=== PATIENT | male | born 2005 | race Asian ===

== ENCOUNTER 2024-06-18 14:48 | Outpatient (AMB) | payer OTHER, SELFPAY ==
[2024-06-18 14:50] VITALS: BP 110/70; PULSE 86; O2SAT 95; BMI 17.7
--- NOTE | 2024-06-18 14:50 | MHC.OFFVIS ---
Vital Signs 06/18/24 14:50 Height 5 ft 10 in Weight 123 lb 7.342 oz BMI 17.7 BP 110/70 Blood Pressure Location Lt brachial Position Sitting Pulse 86 Pulse Source Pulse Oximeter Pulse Oximetry (%) 95 Oxygen Delivery Method Room Air Intake Visit Reasons: Type 1 DM Intake Note: New patient present today for Type 1 Diabetes Mellitus. Last Diabetic eye exam: 2023 Last Podiatry Visit: Doesn't have one. Random Glucose: 133 mg/dl HgA1C: 7.9% Final Canoe Inspector Required: No Information Interpreted: non-clinical & clinical Accompanied by: Aunt Allergies No Known Allergies Allergy (Verified 06/18/24 14:54) Medication List - Last Reconciled 06/18/24 by Alpa Hernandez MD insulin glargine (Lantus U-100 Insulin) 15 units subcut QAM insulin lispro (Humalog U-100 Insulin) 10 units subcut TID HPI Comments Details: 18-year-old male here today for initial evaluation of type 1 diabetes mellitus. Accompanied by his aunt who was present during the visit. Moved to [facility] 3 months ago from [facility]. Last mill roll rewinder visit was in [place] Mar 21 History of diabetes Diagnosed at age 6 Prior therapy: He has been on insulin Omnipod pump in the past in 2014 when he used [place]. However pump is not feasible for him as he goes to [place] for summer vacations for 2-3 months. Currently on On insulin basal bolus regimen with the MDI injections Current regimen: Lantus 15 HS Humalog BF 1:6, lunch and dinner 1 :8 requiring 10 to 15 units with meals SMBGs Didnt bring meter Checks 3 to 4 times Fasting : 90 to 120, Had hypoglycemia last week blood sugar less than 70 , Has hypoglycemic awareness at 50s , feels hunger only when in 60s No serious hypoglycemic event a1c POC 06/18/24 7.9 % Denies any symptoms of hyperglycemia including polyphagia, polyuria, polydipsia. Denies any hypoglycemic symptoms. Complications Eye exam: Last eye exam was Mar 2023 , in [place], doesnt think they checked retina Neuropathy: no history , no paresthesias Kidney disease: no history of kidney disease Macrovascular complications: No history of macrovascular complications. Statin: None APRIL/ARB: None Exercise: Not much Diet control: Carb counts He has never had any hospitalizations for hyperglycemia/hypoglycemia. Social history Works online , mostly a desk job Physical exam General: sitting comfortably in no acute distress HEENT: normocephalic/atraumatic Neck: supple, symmetrical Cardiac: normal heart sounds Pulm: normal breath sounds B/L, no added breath sounds Abd: not distended, no tenderness Extremities: no edema, no signs of myxedema Neuro: AAO x3, Speech: normal, no facial droop, moving all 4 extremities Skin: no rash Foot exam: Deferred today due to time limitation Laboratory Tests 06/18/24 06/18/24 14:57 15:38 Glucose (Clinic) 133 H Hgb A1c (Clinic) 7.9 H [facility] Medical History (Updated 06/18/24 @ 15:51 by Alpa Hernandez MD) Type 1 diabetes mellitus Family History Mother No problems noted. Father No problems noted. Social History Alcohol intake: never Patient Tobacco Use Status: Never used Tobacco Physical Exam Vital Signs: Last Vital Signs Pulse 86 06/18/24 14:50 BP 110/70 06/18/24 14:50 Pulse Ox 95 06/18/24 14:50 Oxygen Delivery Method Room Air 06/18/24 14:50 BMI result Body Mass Index 17.7 Results AMB Hemoglobin A1c AMB Hemoglobin A1c 7.9 % Last Edit by JACE Russell on 06/18/24 15:39 Results Reviewed Results Reviewed: Laboratory Last Values Glucose (Clinic) 133 mg/dL (60-115) H 06/18/24 14:57 Assessment & Plan Assessment & Plan (1) Type 1 diabetes mellitus: Code(s): E10.9 - Type 1 diabetes mellitus without complications Category: Medical Qualifiers: Diabetes mellitus complication status: with hypoglycemia Diabetes mellitus complication detail: without coma Qualified Code(s): E10.649 - Type 1 diabetes mellitus with hypoglycemia without coma Plan: 18-year-old male coming in today for initial evaluation of type 1 diabetes mellitus. Diagnosed at age 6. He moved [place] ago from [place]. That is where he was getting his previous care. Currently on basal bolus regimen with the MDI. He did not bring his glucometer today, however blood sugars per patient has been mostly around 90-120 fasting, with some hypoglycemic episodes less than 70. Currently I would not have much data for him so I will continue him on his current regimen. We applied the freestyle Agustin 3 sent +sensor today. Sensory education done briefly. I will also have him see our educator. Hypoglycemia education done. Plan: -continue Lantus 15 units daily at bedtime -continue Humalog with current carb ratios -podiatry referral placed -ophthalmology referral placed -hypoglycemia education done -educator referral placed -cotton picking machine operator sensor from pharmacy -discussed importance of verifying blood sugars with fingerstick when blood sugars are very low or high -also provided education on hyperglycemia and risks of hyperglycemia. -lab orders placed to be done prior to next visit Plan I spent 60 minutes in reviewing the record, seeing the patient and documenting in the medical record. Orders: Orders AMB Hemoglobin A1c Today E10.9 - Type 1 diabetes mellitus without complications, Z13.9 - Encounter for screening, unspecified Lipid Panel Today E10.9 - Type 1 diabetes mellitus without complications Comprehensive Met. Panel Today E10.9 - Type 1 diabetes mellitus without complications Microalbumin, Random (w Creat) Today E10.9 - Type 1 diabetes mellitus without complications TSH reflex Free T4 Today E10.9 - Type 1 diabetes mellitus without complications Referrals Diabetes Education Referral E10.9 - Type 1 diabetes mellitus without complications Podiatry Referral E10.9 - Type 1 diabetes mellitus without complications Ophthalmology Referral E10.9 - Type 1 diabetes mellitus without complications Medications: New insulin glargine (Lantus Solostar U-100 Insulin) 15 units (0.15 mL) subcut QPM 15 mL 3RF insulin lispro (Humalog KwikPen (U-100) Insulin) subcutaneously 3 times a day; up to 50 units a day 15 mL 3RF blood-glucose meter (FreeStyle Lite Meter kit) As directed to check blood sugars 4 times a day 1 ea 1RF E10.9 - Type 1 diabetes mellitus without complications blood sugar diagnostic (FreeStyle Test strips) As directed to check blood sugars 4 times a day 100 ea 2RF E10.9 - Type 1 diabetes mellitus without complications blood-glucose sensor (FreeStyle Agustin 3 Plus Sensor device) As directed every 14 days 6 ea 3RF E10.9 - Type 1 diabetes mellitus without complications lancets (FreeStyle Lancets) As directed to check blood sugars 4 times a day 100 ea 3RF E10.9 - Type 1 diabetes mellitus without complications pen needle, diabetic (Comfort EZ Pen [place]) As directed to inject insulin 4 times a day, 100 ea 4RF Patient Instructions: See eye doctor See senior financial consultant See educator Continue insulin as it is paralegal supervisor sensor Rule of 15 Treatment for Hypoglycemia (Low blood sugar) If your blood glucose is low (70 and below)*, follow the steps below to treat: Eat or drink something from the list below equal to 15 grams of carbohydrate (carb). Rest for 15 minutes Re-check your blood glucose. If it is still low, (below 70), repeat step 1 above. ? If your next meal is more than an hour away, you will need to eat one carbohydrate choice as a snack to keep your blood glucose from going low again. ?If you can't figure out why you have low blood glucose, call your healthcare provider, as your medicine may need to be adjusted. ?Always carry something with you to treat an insulin reaction. Use food from the list below. ? Foods equal to One Carbohydrate Choice (15 grams of carbohydrate): 3 Glucose ?tablets or 4 Dextrose tablets 4 ounces of fruit juice 5-6 ounces (about 1/2 can) of regular soda such as Coke or Pepsi ? 7-8 gummy or regular Life Savers ? 1 Tbsp. of sugar or jelly NOTE: If your blood sugar is less than 50, double the portion above for a total of 30 gm. ?Carbohydrate. ? Follow meal plan of 45-60 g of consistent carbohydrates at 3 meals each day and 15 g of carbohydrate at 1-2 snacks each day. Coding Level of Care Code New Pt Level 5 (21976) Diagnoses Type 1 diabetes mellitus with hypoglycemia and without coma E10.649 Diabetes mellitus complication status: with hypoglycemia Diabetes mellitus complication detail: without coma Time Spent (min) 60
[2024-06-18 15:02] LABS: Glucose, Whole Blood 133 mg/dL (60-115)
--- OUTSIDE RECORDS SUMMARY | 2024-06-18 17:39 | XMS_ITS | Clinical Summary ---
Author Organization [address] Building Address [address] [place] [address] Phone Care Team Providers Care Pond Tender Name Role Phone Lexi Chiu MD Primary Care Provider [phone] Social History Tobacco Use Types Packs/Day Years Used Date Smoking Tobacco: Never Assessed Sex and Gender Information Value Date Recorded Sex Assigned at Not on file Legal Sex Male 2:46 PM EDT Gender Identity Not on file Sexual Orientation Not on file Plan of Treatment Upcoming Encounters Date Type Department Care Team (Late st Contact Info) Description 09/22/2024 3:30 PM EDT Office Visit Internal Medicine - [address] [phone] Lexi Chiu MD [address] [place] [address] Health Maintenance Due Date Last Done Comments Varicella Vaccines (1 of 2 - 13+ 2-dose series) 11/17/2016 HPV Vaccines (1 - Male 3-dos e series) 11/17/2018 Meningococcal B Vaccine (1 o f 2 - Standard) 2019 DTaP,Tdap,and Td Vaccines (1 - Tdap) 11/17/2022 Hepatitis B Vaccines (1 of 3 - 19+ 3-dose series) 11/17/2022 COVID-19 Vaccine (1 - 2023-2 5 season) 2023 Annual Well Child Visit (3-2 1 years old) 05/05/2024 Depression Screening 05/05/2024 HIV Screening 05/05/2024 Hepatitis C Screening 05/05/2024 Social Influencers of Health Screening 05/05/2024 Influenza Vaccine (Season Ended) 2024 HIB Vaccines Aged Out No longer eligi ble based on patient's age to complete this topic Hepatitis A Vaccines Aged Out No long er eligible based on patient's age to complete this topic IPV Vaccines Aged Out No longer eligi ble based on patient's age to complete this topic MMR Vaccines Aged Out No longer eligi ble based on patient's age to complete this topic Meningococcal ACWY Vaccine Aged Out N o longer eligible based on patient's age to complete this topic Pneumococcal Vaccine: Pediat rics (0 to 5 Years) and At-Risk Patients (6 to 64 Years) Aged Out No longer eligible b ased on patient's age to complete this topic RSV Immunization Patients Un aubrey 20 months Aged Out No longer eligible b ased on patient's age to complete this topic Insurance [facility] [employer] PLAN MEDICAID - [place] Care Teams Pond Tender Relationship Specialty Start Date End Date Lexi Chiu MD [address] [place] [address] PCP - General Internal Medicine 05/05/24
== END 2024-06-18 15:47 | disposition home or self-care (01) ==
LOC: HO.ENCR 14:49
PROVIDERS: Visit Provider Student in an Organized Health Care Education/Training Program
DX: E10.649 Type 1 diabetes mellitus with hypoglycemia without coma (principal); Z13.9 Encounter for screening, unspecified; E10.9 Type 1 diabetes mellitus without complications
CPT/HCPCS: 99205

== ENCOUNTER → 2024-06-18 14:48 | Outpatient (BNVA) | payer OTHER, SELFPAY | PROVIDERS: Visit Provider Student in an Organized Health Care Education/Training Program | DX: E10.649 Type 1 diabetes mellitus with hypoglycemia without coma (principal); Z79.4 Long term (current) use of insulin | CPT/HCPCS: 82947; 83036; 99202 ==

== ENCOUNTER 2024-07-02 09:02 | Outpatient (AMB) | payer OTHER, SELFPAY ==
--- OUTSIDE RECORDS SUMMARY | 2024-07-02 09:32 | XMS_ITS | Clinical Summary ---
Author Organization [address] Building Address [address] [place] [address] Phone Care Team Providers Care Medical Esthetician Name Role Phone Lexi Chiu MD Primary Care Provider [phone] Social History Tobacco Use Types Packs/Day Years [...] PM EDT Office Visit Internal Medicine - [address] [phone] Lexi Chiu MD [address] [place] [address] Health Maintenance Due Date Last Done Comments [...] patient's age to complete this topic Insurance [facility] [employer] PLAN MEDICAID - [place] Care Teams Medical Esthetician Relationship Specialty Start Date End Date Lexi Chiu MD [address] [facility] [place] [address] PCP - General Internal Medicine 05/05/24
--- OUTSIDE RECORDS SUMMARY | 2024-07-02 09:33 | XMS_ITS | Continuity of Care Document ---
Author Organization [facility] Address [address] [facility] [address] [place] [address] Phone Care Team Providers Care Byproducts Operator Name Role Phone David Leung MD Unavailable [...] Encounter [facility] , [address], [place], [place], [id number], tel:[phone] [place] blurry vision (chief complaint) Type 1 diabetes mellitus on insulin therapyAllergic conjunctivitis, bilateralMyopia of both eyes 7 Xochitl Hernandez. [address] [facility], [address], [place], [id number] , [place]. tel:[phone] Referring Provider: David Saenz, [address] [facility] [address], [place], [address] . tel:[phone] [facility] [address], [id number], [place] tel:[phone] [place] blurry vision (chief complaint) Acute Atopic ConjunctivitisRegu lar Astigmatism 5 Xochitl Hernandez. [address] [facility], [address] [place] [address], [id number] , [place]. tel:[phone] Referring Provider: David Saenz, [address] [facility] [address] [place] [address], [address] . tel:[phone] Est. Patient Detailed [facility] [address], [id number], [place] tel:[phone] [place] Acute Atopic Conjunctivitis 4 Xochitl Hernandez. [address] [facility], [address], [id number] , [place]. tel:[phone] Referring Provider: David Saenz, [address] [facility] [address], [place], [address] . tel:[phone] [facility] [address], [id number], [place] tel:[phone] [place] ChalazionDiabetes Mellitus Type 2, UncomplicatedRegul ar AstigmatismAcute Atopic Conjunctivitis 4 Xochitl Hernandez. [address] [facility], [address], [place], [id number] , [place]. tel:[phone] Est. Patient Detailed [facility] [place], [address], [id number], tel:[phone] [place] Diabetes Mellitus Type 2, UncomplicatedRegul ar Astigmatism Apr-0 4 Xochitl Hernandez. [address] [facility], [address], [place], [place], [id number] , [place]. tel:[phone] [facility] , [address], [id number], tel:[phone] [place] Diabetes Mellitus Type 2, UncomplicatedRegul ar Astigmatism Oct-3 0-201 3 Xochitl Hernandez. [address] [facility], [address], [place], [place], [id number] , [place]. 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 Related to Regular Astigmatism - Return in 1 year w tiffani Leung MD for Complete Exam. Related to Diabetes Mellitus Type 2, Uncomplicated Diabetes Mellitus-No diabetic Retinopathy OU - Keep good control of Blood Sugar levels. Start Zaditor BID or PRN OU for itch. Report Dr. Austin Related to Diabetes Mellitus Type 2, Uncomplicated Assessments Type Assessment Date assessment Type 1 diabetes mellitus on insu lucian therapy assessment Allergic conjunctivitisjefe assessment Myopia of both eyes Patient Care Teams Name Effective Dates (start - stop) Status Members No Information
--- NOTE | 2024-07-02 10:05 | A.OFFVIS_ITS ---
Intake Intake Visit Reasons: T2DM Clinical Data Assistant Required: No Accompanied by: Self / Same As Patient Allergies No Known Allergies Allergy (Verified 06/18/24 14:54) HPI Comprehensive Diabetes Asmnt General Diabetes type type 1 Age of onset 6y/o Medications Details MDI Rapid acting insulin treatment details Humalog - Counts carbs Long acting insulin treatment details Basaglar 15 units Uses insulin pump No Lifestyle Physical activity functional status independent ambulation Self Mgmt What meter brand do you use? Reports [employer] Education How do you learn best? One-on-One Instruction Patient comprehension yes States what type of Diabetes they have Most Recent Diabetes Results: No Data to Display [facility] Medical History (Updated 06/18/24 @ 15:51 by Alpa Hernandez MD) Type 1 diabetes mellitus Family History (Updated 06/18/24 @ 14:56 by JACE Russell) Mother No problems noted. Father No problems noted. 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 Treats low blood sugar with fruit juice, reports he over treats frequently. Suggested to patient he obtain small juice boxes, glucose tabs or glucose gel which is already portioned to 15 gms Was on Omnipod insulin pump in the past which was not integrated with CGM. Recently started Agustin 3+ sensor Average glucose for the past 14 days 165 mg/dL Above target 37% At target 61% Below target 2% Patient's last A1c 7.9% on 06/18/2024 Patient uses insulin to carb ratio at breakfast of 1-6, lunch and dinner 1-8 Correction factor: 1:80 Corrects to 140 mg/dL In the past he has used Humalog igll pen with cartridge, he frequently uses 0.5 units of insulin. Discussed with patient new prescription for Humalog pens will be dosed in 1 unit increments. If he finds that he is having more difficulty controlling glucose levels he should discuss with Dr. Hernandez a prescription for Humalog cartridges At this time patient is not interested in pursuing insulin pump therapy. we did review insulin pump basics. Explained pros and cons of insulin pumps. Showed pt various pumps, infusion sets, and cgms currently available. Reviewed need to wear pump 24/7 and need to change infusion set every 3 days. Also stressed importance of frequent BG checks, 4x daily minimum or use pump that is integrated with CGM.? Patient given comparison sheet of all insulin pump available on the market. Learning objectives: The patient was provided with verbal and written education on the following topics as outlined below. The patient met all learning objectives and was able to verbalize understanding and provide teach back of education topics discussed . The patient was provided with the opportunity to ask questions and all questions were answered. Hypo instructions ? When first signs of insulin reaction occur, immediately drink orange juice or cola, or suck on a sugar cube, but only if the person is conscious. ? Person with diabetes should continue taking insulin when ill, unless he/she is not able to eat.? Regularly check blood sugar or urine for sugar and acetone during illness. ? Exercise regularly. ? Pay special attention to the feet.? Avoid cuts, sores, blisters, ill- fitting shoes, or going barefoot.? Promptly treat injuries to the feet. ? Take medications as directed by physician. ? Drink extra water or noncaffeinated, nonsugared drinks to prevented hydration. Signs and symptoms of low blood sugar (happen quickly) Each person's reaction to low blood sugar is different. Learn your own signs and symptoms of when your blood sugar is low. Taking time to write these symptoms down may help you learn your own symptoms of when your blood sugar is low. From milder, more common indicators to most severe, signs and symptoms of low blood sugar include: Feeling shaky Being nervous or anxious Sweating, chills and clamminess Irritability or impatience Confusion Fast heartbeat Feeling lightheaded or dizzy Hunger Nausea Color draining from the skin (pallor) Feeling Sleepy Feeling weak or having no energy Blurred/impaired vision Tingling or numbness in the lips, tongue, or cheeks Headaches Coordination problems, clumsiness Hypoglycemia or blood glucose under 70 mg/dL use the rule of 15's: If you have your blood glucose meter test your blood glucose, if you do not have your meter still follow below instruction: Keep quick-sugar foods with you at all times.? Take 15 grams of fast acting carbohydrates. Examples are 4 ounces of fruit juice or regular soda pop, 8 ounces fat-free milk, 1 tablespoon of table sugar, honey or corn syrup, jam, one miniature box of raisins, 7-8 gumdrops or Life Savers candy, 4 glucose tablets, and glucose gel.? Retest blood glucose in 15 minutes, if blood glucose is still under 80 mg/dL repeat rule of 15's. If blood glucose is under 50, take 30 grams of fast acting carbohydrates If you are having hypoglycemia, or insulin reaction, more that a few times a week, call MD or c unix developer F/U BG check High Blood Sugar and When to Test for Ketones Hyperglycemia is the technical term for high blood glucose (blood sugar). High blood sugar happens when the body has too little insulin or when the body can't use insulin properly. What causes hyperglycemia? A number of things can cause hyperglycemia: * If you have type 1, you may not have given yourself enough insulin. ? If you have type 2, your body may have enough insulin, but it is not as effective as it should be. * You ate more than planned or exercised less than planned. * You have stress from an illness, such as a cold or flu. * You have other stress, such as family conflicts or school or dating problems. How to lower your blood sugar level. ? Take medications as directed by physician. ? Drink extra water or noncaffeinated, nonsugared drinks to prevented hydration. ? Exercise if you are not sick However, if your blood sugar is above 250 mg/dl, check your urine for ketones. If you have ketones, do not exercise Exercising when ketones are present may make your blood sugar level go even higher. You'll need to work with your doctor to find the safest way for you to lower your blood sugar level. Regularly check blood sugar or urine for sugar and acetone during illness. Diabetic ketoacidosis (DKA) Is serious condition that can lead to diabetic coma (passing out for a long time) or even . When your cells don't get the glucose they need for energy, your body begins to burn fat for energy, which produces ketones. Ketones are chemicals that the body creates when it breaks down fat to use for energy. The body does this when it doesn?t have enough insulin to use glucose, the body?s normal source of energy. When ketones build up in the blood, they make it more acidic. They are a warning sign that your diabetes is out of control or that you are getting sick. Symptoms of Diabetic Ketoacidosis (DKA) ? DKA usually develops slowly. But when vomiting occurs, this life- threatening condition can develop in a few hours. Early symptoms include the following: ? Thirst or a very dry mouth ? Frequent urination ? High blood glucose (blood sugar) levels ? High levels of ketones in the urine ? Then, other symptoms appear: ? Constantly feeling tired ? Dry or flushed skin ? Nausea, vomiting, or abdominal pain ? (Vomiting can be caused by many illnesses, not just ketoacidosis. If vomiting continues for more than 2 hours, contact your health care provider.) ? Difficulty breathing ? Fruity odor on breath ? A hard time paying attention, or confusion When should you test for ketones? It is advisable to check for ketones under the following conditions when: Your blood glucose is higher than 250mg/dl. Feeling nauseated, throwing up, or have pains in your abdominal region. Have a cold or flu. Have general body fatigue. Feel thirsty or have a very dry mouth. Have flushed skin. Have a fruity breath or a hard time breathing. You feel perplexed or in fog. How to Test Urine for Ketones You can detect ketones with a simple urine test using a test strip, similar to a blood testing strip. Ask your health care provider when and how you should test for ketones. Many experts advise to check your urine for ketones when your blood glucose is more than 250 mg/dl. When you are ill (when you have a cold or the flu, for example), check for ketones every 4 to 6 hours. And check every 4 to 6 hours when your blood sugar is more than 250 mg/dl. Also, check for ketones when you have any symptoms of DKA. How to lower your blood sugar level. ? Take medications as directed by physician. ? Drink extra water or noncaffeinated, nonsugared drinks to prevented hydration. ? Exercise if you are not sick However, if your blood sugar is above 250 mg/dl, check your urine for ketones. If you have ketones, do not exercise Exercising when ketones are present may make your blood sugar level go even higher. You'll need to work with your doctor to find the safest way for you to lower your blood sugar level. Regularly check blood sugar or urine for sugar and acetone during illness Patient Instructions: DIABETES PROBLEMS HOMECARE INSTRUCTIONS? for High Blood Sugar and When to Test for Ketones Hyperglycemia is the technical term for high blood glucose (blood sugar). High blood sugar happens when the body has too little insulin or when the body can't use insulin properly. What causes hyperglycemia? A number of things can cause hyperglycemia: * If you have type 1, you may not have given yourself enough insulin. ? If you have type 2, your body may have enough insulin, but it is not as effective as it should be. * You ate more than planned or exercised less than planned. * You have stress from an illness, such as a cold or flu. * You have other stress, such as family conflicts or school or dating problems. How to lower your blood sugar level. ? Take medications as directed by physician. ? Drink extra water or noncaffeinated, nonsugared drinks to prevented hydration. ? Exercise if you are not sick However, if your blood sugar is above 250 mg/dl, check your urine for ketones. If you have ketones, do not exercise Exercising when ketones are present may make your blood sugar level go even higher. You'll need to work with your doctor to find the safest way for you to lower your blood sugar level. Regularly check blood sugar or urine for sugar and acetone during illness. Diabetic ketoacidosis (DKA) Is serious condition that can lead to diabetic coma (passing out for a long time) or even . When your cells don't get the glucose they need for energy, your body begins to burn fat for energy, which produces ketones. Ketones are chemicals that the body creates when it breaks down fat to use for energy. The body does this when it doesn?t have enough insulin to use glucose, the body?s normal source of energy. When ketones build up in the blood, they make it more acidic. They are a warning sign that your diabetes is out of control or that you are getting sick. Symptoms of Diabetic Ketoacidosis (DKA) ? DKA usually develops slowly. But when vomiting occurs, this life- threatening condition can develop in a few hours. Early symptoms include the following: ? Thirst or a very dry mouth ? Frequent urination ? High blood glucose (blood sugar) levels ? High levels of ketones in the urine ? Then, other symptoms appear: ? Constantly feeling tired ? Dry or flushed skin ? Nausea, vomiting, or abdominal pain ? (Vomiting can be caused by many illnesses, not just ketoacidosis. If vomiting continues for more than 2 hours, contact your health care provider.) ? Difficulty breathing ? Fruity odor on breath ? A hard time paying attention, or confusion When should you test for ketones? It is advisable to check for ketones under the following conditions when: Your blood glucose is higher than 250mg/dl. Feeling nauseated, throwing up, or have pains in your abdominal region. Have a cold or flu. Have general body fatigue. Feel thirsty or have a very dry mouth. Have flushed skin. Have a fruity breath or a hard time breathing. You feel perplexed or in fog. How to Test Urine for Ketones You can detect ketones with a simple urine test using a test strip, similar to a blood testing strip. Ask your health care provider when and how you should test for ketones. Many experts advise to check your urine for ketones when your blood glucose is more than 250 mg/dl. When you are ill (when you have a cold or the flu, for example), check for ketones every 4 to 6 hours. And check every 4 to 6 hours when your blood sugar is more than 250 mg/dl. Also, check for ketones when you have any symptoms of DKA. How to lower your blood sugar level. ? Take medications as directed by physician. ? Drink extra water or noncaffeinated, nonsugared drinks to prevented hydration. ? Exercise if you are not sick However, if your blood sugar is above 250 mg/dl, check your urine for ketones. If you have ketones, do not exercise Exercising when ketones are present may make your blood sugar level go even higher. You'll need to work with your doctor to find the safest way for you to lower you r blood sugar level. Regularly check blood sugar or urine for sugar and acetone during illness Follow up with nurse educator in 10 weeks Coding Level of Care Code Est Pt Level 1 (11354) Diagnoses Type 1 diabetes mellitus with hypoglycemia and without coma E10.649 Diabetes mellitus complication status: with hypoglycemia Diabetes mellitus complication detail: without coma
== END 2024-07-02 10:08 | disposition home or self-care (01) ==
LOC: HO.ENCR 09:03
PROVIDERS: Visit Provider Registered Nurse Diabetes Educator
DX: E10.649 Type 1 diabetes mellitus with hypoglycemia without coma (principal)

== ENCOUNTER → 2024-07-02 09:02 | Outpatient (BNVA) | payer OTHER, SELFPAY | PROVIDERS: Visit Provider Registered Nurse Diabetes Educator | DX: E10.649 Type 1 diabetes mellitus with hypoglycemia without coma (principal); Z79.4 Long term (current) use of insulin | CPT/HCPCS: 99211 ==

== ENCOUNTER 2024-07-15 10:51 | Outpatient (AMB) | payer OTHER, SELFPAY ==
[2024-07-15 11:01] VITALS: BP 102/64; PULSE 83; O2SAT 99; BMI 17.7
--- NOTE | 2024-07-15 11:01 | MHC.OFFVIS ---
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 Accompanied by: Self / Same As Patient Allergies No Known Allergies Allergy (Verified 07/15/24 11:07) Medication List - Last Reconciled 07/15/24 by Alpa Hernandez MD acetone (urine) test (Ketone Urine Test strips) As directed to check ketones when blood sugars greater than 300 mg/dl blood sugar diagnostic (FreeStyle Lite Strips) As directed to check blood sugars 3 times a day blood-glucose meter (FreeStyle Lite Meter kit) As directed to check blood sugars 3 times a day blood-glucose sensor (FreeStyle Agustin 3 Plus Sensor device) As directed every 14 days insulin glargine (Basaglar KwikPen U-100 Insulin) 18 units (0.18 mL) subcut DAILY insulin lispro subcutaneously 3 times a day; up to 50 units per day lancets (FreeStyle Lancets) As directed to check blood sugars 3 times a day pen needle, diabetic (Comfort EZ Pen [place]) As directed to inject insulin 4 times a day, HPI Comments Details: 18-year-old male here today for fup of type 1 diabetes mellitus. Moved to [facility] 3 months ago from [place]. 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 However pump is not feasible for him as he goes to [place] for summer vacations for 2-3 months. Currently on On insulin basal bolus regimen with the MDI injections Current regimen: Lantus 16 HS Humalog BF 1:6, lunch and dinner 1 :8 Correction factor: 1:80 Corrects to 140 mg/dL requiring 10 to 15 units with meals Freestyle Agustin 3 downloaded from July 02 to 07/15/2024 Time CGM active 96% G AK 7.4% Glucose variability 31.1% Average glucose 172 mg/dL Within target range 56% High 35% Very high 8% Low 1% Very low 0% Interpretation: Blood glucose above target, most days he is hyperglycemic in the morning as well as postprandially. Does have some hypoglycemic events, and then he over corrects for the hypoglycemia resulting in hyperglycemia. Random Glucose: 214 mg/dl today Has hypoglycemic awareness at 50s , feels hunger only when in 60s No serious hypoglycemic event a1c POC 06/18/24 7.9 % Saw CDE 07/02/2024, has follow up 09/04/2024 Denies any symptoms of hyperglycemia including polyphagia, polyuria, polydipsia. Complications Eye exam: Last eye exam was Mar 2023 , in [place], doesnt think they checked retina Neuropathy: no history , no paresthesias Kidney disease: no history of kidney disease Macrovascular complications: No history of macrovascular complications. Statin: None APRIL/ARB: None Exercise: Not much Diet control: Carb counts He has never had any hospitalizations for hyperglycemia/hypoglycemia. Social history Works online , mostly a desk job Physical exam General: sitting comfortably in no acute distress HEENT: normocephalic/atraumatic Neck: supple, symmetrical Cardiac: normal heart sounds Pulm: normal breath sounds B/L, no added breath sounds Abd: not distended, no tenderness Extremities: no edema, no signs of myxedema Neuro: AAO x3, Speech: normal, no facial droop, moving all 4 extremities Skin: no rash Foot exam: Intact sensation to monofilament, intact pulses, warm and well-perfused feet Laboratory Tests 06/18/24 06/18/24 14:57 15:38 Glucose (Clinic) 133 H Hgb A1c (Clinic) 7.9 H Labs seen on patient portal from [facility] 07/11/24 glucose 198 BUN 12 creatinine 0.9 egfr 125 na 138 k 4.6 cl 102 c02 19 ca 9.6 albumin 4.8 ast 17 alt 12 total cholesterol 171 tgl 58 hdl 44 LDL 116 tsh 3 [facility] Medical History (Updated 07/15/24 @ 11:52 by Alpa Hernandez MD) HLD (hyperlipidemia) Type 1 diabetes mellitus Family History Mother No problems noted. Father No problems noted. Social History (Updated 06/18/24 @ 14:56 by JACE Russell) Alcohol intake: never Patient Tobacco Use Status: Never used Tobacco Office Procedures Glucose Monitoring Details Details: see [facility] [id number] - Glucose monitoring, continuous-physician I&R Procedure code (CPT) selection complete Assessment & Plan Assessment & Plan (1) Type 1 diabetes mellitus: Code(s): E10.9 - Type 1 diabetes mellitus without complications Category: Medical Qualifiers: Diabetes mellitus complication status: with hypoglycemia Diabetes mellitus complication detail: without coma Qualified Code(s): E10.649 - Type 1 diabetes mellitus with hypoglycemia without coma Plan: 18-year-old male coming in today for follow up of type 1 diabetes mellitus. Diagnosed at age 6. He moved to the [place] 3 months ago from [place]. That is where he was getting his previous care. Currently on basal bolus regimen with the MDI. A1c most recently at 7.9% from 06/18/2024. This is above goal of less than 7%. Reviewed CGM data which also showed that he continues to have blood sugars above target range with both fasting and postprandial hyperglycemia. He is using roughly around 72 units total daily dose, if I calculate his correction factor it is way off what he is currently doing. However I will not tighten his correction factor too much right now we will make small changes. We will continue the same carb ratios, we will go up on the Lantus. Hypoglycemia education done. He saw our educator, who went over different pumps, at this time patient is not interested in insulin pumps given that he travels to [facility] for long periods of time and finds it difficult to manage pump over there. Plan: -increase Lantus to 17 units daily at bedtime, and can further increase to 18 units daily if continues to have fasting numbers greater than 140 mg/dL -continue Humalog with current carb ratios, tighten correction factor to 1: 70 from 1: 80 -podiatry referral in place, gave him the number to call -ophthalmology referral in place, gave him the number to call -hypoglycemia education done -follow up with nutrition educator -discussed importance of verifying blood sugars with fingerstick when blood sugars are very low or high -also provided education on hyperglycemia and risks of hyperglycemia. He has not done urine microalbumin labs, asked him to do that TSH normal from June 2024 (2) HLD (hyperlipidemia): Code(s): E78.5 - Hyperlipidemia, unspecified Category: Medical Qualifiers: Hyperlipidemia type: mixed hyperlipidemia Qualified Code(s): E78.2 - Mixed hyperlipidemia Plan: LDL level elevated at 116 from June 2024. Goal LDL less than 70 mg/dL. Given that he has had type 1 diabetes mellitus for over 20 years, could consider statin, however today I advised him about lifestyle modification with cutting out red meat. He eats a lot of beef. We will plan to repeat lipid panel another 6 months with lifestyle modification. Plan: -plan to repeat lipid panel sometime around fall/winter 2024 Plan I spent 30 minutes in reviewing the record, seeing the patient and documenting in the medical record. Orders: Orders AMB Glucose Monitoring Today E10.649 - Type 1 diabetes mellitus with hypoglycemia without coma Medications: Changed From insulin glargine (Basaglar KwikPen U-100 Insulin) 15 units (0.15 mL) subcut DAILY 15 mL 3RF E10.649 - Type 1 diabetes mellitus with hypoglycemia without coma To insulin glargine (Basaglar KwikPen U-100 Insulin) 18 units (0.18 mL) subcut DAILY 15 mL 3RF E10.649 - Type 1 diabetes mellitus with hypoglycemia without coma Refilled insulin lispro subcutaneously 3 times a day; up to 50 units per day 45 mL 5RF Patient Instructions: Increase insulin lantus to 17 units daily, if your morning fasting number are still greater than 140 mg /dl go up to 18 units Tighten correction factor to 1:70 and correct to 140 mg/dl Continue same carb ratios Walk 30 mins 5 days a week Eat more lean proteins like chicken and fish Rule of 15 Treatment for Hypoglycemia (Low blood sugar) If your blood glucose is low (70 and below)*, follow the steps below to treat: Eat or drink something from the list below equal to 15 grams of carbohydrate (carb). Rest for 15 minutes Re-check your blood glucose. If it is still low, (below 70), repeat step 1 above. ? If your next meal is more than an hour away, you will need to eat one carbohydrate choice as a snack to keep your blood glucose from going low again. ?If you can't figure out why you have low blood glucose, call your healthcare provider, as your medicine may need to be adjusted. ?Always carry something with you to treat an insulin reaction. Use food from the list below. ? Foods equal to One Carbohydrate Choice (15 grams of carbohydrate): 3 Glucose ?tablets or 4 Dextrose tablets 4 ounces of fruit juice 5-6 ounces (about 1/2 can) of regular soda such as Coke or Pepsi ? 7-8 gummy or regular Life Savers ? 1 Tbsp. of sugar or jelly NOTE: If your blood sugar is less than 50, double the portion above for a total of 30 gm. ?Carbohydrate. ? Follow meal plan of 45-60 g of consistent carbohydrates at 3 meals each day and 15 g of carbohydrate at 1-2 snacks each day. DIABETES PROBLEMS HOMECARE INSTRUCTIONS? for High Blood Sugar and When to Test for Ketones Hyperglycemia is the technical term for high blood glucose (blood sugar). High blood sugar happens when the body has too little insulin or when the body can't use insulin properly. What causes hyperglycemia? A number of things can cause hyperglycemia: If you have type 1, you may not have given yourself enough insulin. ? If you have type 2, your body may have enough insulin, but it is not as effective as it should be. You ate more than planned or exercised less than planned. You have stress from an illness, such as a cold or flu. You have other stress, such as family conflicts or school or dating problems. How to lower your blood sugar level. ? Take medications as directed by physician. ? Drink extra water or noncaffeinated, nonsugared drinks to prevented hydration. ? Exercise if you are not sick However, if your blood sugar is above 250 mg/dl, check your urine for ketones. If you have ketones, do not exercise Exercising when ketones are present may make your blood sugar level go even higher. You'll need to work with your doctor to find the safest way for you to lower your blood sugar level. Regularly check blood sugar or urine for sugar and acetone during illness. Diabetic ketoacidosis (DKA) Is serious condition that can lead to diabetic coma (passing out for a long time) or even . When your cells don't get the glucose they need for energy, your body begins to burn fat for energy, which produces ketones. Ketones are chemicals that the body creates when it breaks down fat to use for energy. The body does this when it doesn?t have enough insulin to use glucose, the body?s normal source of energy. When ketones build up in the blood, they make it more acidic. They are a warning sign that your diabetes is out of control or that you are getting sick. Symptoms of Diabetic Ketoacidosis (DKA) ? DKA usually develops slowly. But when vomiting occurs, this life-threatening condition can develop in a few hours. Early symptoms include the following: ? Thirst or a very dry mouth ? Frequent urination ? High blood glucose (blood sugar) levels ? High levels of ketones in the urine ? Then, other symptoms appear: ? Constantly feeling tired ? Dry or flushed skin ? Nausea, vomiting, or abdominal pain ? (Vomiting can be caused by many illnesses, not just ketoacidosis. If vomiting continues for more than 2 hours, contact your health care provider.) ? Difficulty breathing ? Fruity odor on breath ? A hard time paying attention, or confusion When should you test for ketones? It is advisable to check for ketones under the following conditions when: Your blood glucose is higher than 250mg/dl. Feeling nauseated, throwing up, or have pains in your abdominal region. Have a cold or flu. Have general body fatigue. Feel thirsty or have a very dry mouth. Have flushed skin. Have a fruity breath or a hard time breathing. You feel perplexed or in fog. How to Test Urine for Ketones You can detect ketones with a simple urine test using a test strip, similar to a blood testing strip. Ask your health care provider when and how you should test for ketones. Many experts advise to check your urine for ketones when your blood glucose is more than 250 mg/dl. When you are ill (when you have a cold or the flu, for example), check for ketones every 4 to 6 hours. And check every 4 to 6 hours when your blood sugar is more than 250 mg/dl. Also, check for ketones when you have any symptoms of DKA. How to lower your blood sugar level. ? Take medications as directed by physician. ? Drink extra water or noncaffeinated, nonsugared drinks to prevented hydration. ? Exercise if you are not sick However, if your blood sugar is above 250 mg/dl, check your urine for ketones. If you have ketones, do not exercise Exercising when ketones are present may make your blood sugar level go even higher. You'll need to work with your doctor to find the safest way for you to lower your blood sugar level. Regularly check blood sugar or urine for sugar and acetone during illness Coding Level of Care Code Est Pt Level 4 (81885) Diagnoses Type 1 diabetes mellitus with hypoglycemia and without coma E10.649 Diabetes mellitus complication status: with hypoglycemia Diabetes mellitus complication detail: without coma Mixed hyperlipidemia E78.2 Hyperlipidemia type: mixed hyperlipidemia CPT Codes Details - CPT: 07687 - Glucose monitoring, continuous-physician I&R ([id number]) Time Spent (min) 30
[2024-07-15 11:12] LABS: Glucose, Whole Blood 214 mg/dL (60-115)
--- OUTSIDE RECORDS SUMMARY | 2024-07-15 12:05 | XMS_ITS | Clinical Summary ---
Author Organization [address] Building Address [address] [place] [phone] Phone Care Team Providers Care Agricultural Research Engineer Name Role Phone Lexi Chiu MD Primary Care Provider [phone] Social History Tobacco Use Types Packs/Day Years [...] PM EDT Office Visit Internal Medicine - [address] [phone] Lexi Chiu MD [address] [place] [address] Health Maintenance Due Date Last Done Comments [...] patient's age to complete this topic Insurance [facility] [employer] PLAN MEDICAID - [place] Care Teams Agricultural Research Engineer Relationship Specialty Start Date End Date Lexi Chiu MD [address] [facility] [place] [phone] PCP - General Internal Medicine 05/05/24
== END 2024-07-15 11:41 | disposition home or self-care (01) ==
LOC: HO.ENCR 10:52
PROVIDERS: Visit Provider Student in an Organized Health Care Education/Training Program
DX: E10.649 Type 1 diabetes mellitus with hypoglycemia without coma (principal); E78.2 Mixed hyperlipidemia
CPT/HCPCS: 95251; 99214

== ENCOUNTER → 2024-07-15 10:51 | Outpatient (BNVA) | payer OTHER, SELFPAY | PROVIDERS: Visit Provider Student in an Organized Health Care Education/Training Program | DX: E10.649 Type 1 diabetes mellitus with hypoglycemia without coma (principal); E78.2 Mixed hyperlipidemia; Z46.81 Encounter for fitting and adjustment of insulin pump; Z79.4 Long term (current) use of insulin | CPT/HCPCS: 82947; 99212 ==

== ENCOUNTER 2024-08-25 09:49 | Outpatient (REF) | payer OTHER, SELFPAY ==
--- OUTSIDE RECORDS SUMMARY | 2024-08-25 10:23 | XMS_ITS | Clinical Summary ---
Author Organization [address] Building Address [address] [place] [phone] Phone Care Team Providers Care System Admin Name Role Phone Lexi Chiu MD Primary Care Provider [phone] Social History Tobacco Use Types Packs/Day Years [...] PM EDT Office Visit Internal Medicine - [address] [phone] Lexi Chiu MD [address] [place] [address] Health Maintenance Due Date Last Done Comments [...] patient's age to complete this topic Insurance [facility] [employer] PLAN MEDICAID - [place] Care Teams System Admin Relationship Specialty Start Date End Date Lexi Chiu MD [address] [place] [phone] PCP - General Internal Medicine 05/05/24
[2024-08-25 11:19] LABS: Alanine Aminotransferase 19 U/L (0-40); Albumin Level 4.6 g/dL (3.5-5.0); Alkaline Phosphatase 71 U/L (39-117); Anion Gap 11 (12-20); Aspartate Amino Transferase 24 U/L (5-37); Bilirubin Direct 0.4 mg/dL (0.0-0.5); Bilirubin Total 2.9 mg/dL (0.0-1.0); Blood Urea Nitrogen 14 mg/dL (9-16); Calcium 9.1 mg/dL (8.4-10.2); Carbon Dioxide 25 mmol/L (22-29); Chloride 108 mmol/L (96-108); Cholesterol 144 mg/dL (<200); Estimated Glomerular Filt Rate > 60; Glucose Random 145 mg/dL (60-115); HDL Cholesterol 40 mg/dL (>40); LDL Cholesterol Calculated 91 mg/dL (<100); Potassium 4.3 mmol/L (3.3-5.1); Sodium 140 mmol/L (135-145); Triglycerides 68 mg/dL (<150)
[2024-08-25 11:38] LABS: TSH reflex Free T4 2.43 uIU/mL (0.32-4.0)
[2024-08-25 15:59] LABS: Creatinine Urine 155.06 mg/dL; Microalbumin Urine < 5.0 mg/L
== END 2024-08-25 09:50 | disposition home or self-care (01) ==
LOC: HO.LAB 09:49
PROVIDERS: Visit Provider Student in an Organized Health Care Education/Training Program
DX: E10.649 Type 1 diabetes mellitus with hypoglycemia without coma (principal); E78.2 Mixed hyperlipidemia; R17 Unspecified jaundice
CPT/HCPCS: 36415; 80053; 80061; 82248; 82570; 82947; 84443; 99212

== ENCOUNTER 2024-08-25 14:51 | Outpatient (AMB) | payer OTHER, SELFPAY ==
--- OUTSIDE RECORDS SUMMARY | 2016-03-29 11:30 | XMS_ITS | Continuity of Care Document ---
Author Organization [facility] Address [address] [place] [address] Phone Care Team Providers Care Digital Engineer Name Role Phone David Leung MD Unavailable Unavailable Allergies, Adverse Reactions, Alerts Substance Reaction Status Criticality No Known Allergies Active No Inform ation Medications Medication Instructions Dosage Effective Dates (start - stop) Status Comments Pataday 0.2 % eye drops instill 1 drop by ophthalmic route every day into both eyes - Active 3 month supply ZADITOR (unknown strength) instill 1 drop by ophthalmic route 2 times every day into both eyes Not Available - Active HUMALOG (unknown strength) inject by subcutaneous route as per insulin sliding scale protocol Not Available - Active CLARITIN (unknown strength) Not Available - Active LANTUS (unknown strength) inject by subcutaneous route as per insulin protocol Not Available - No Longer Active Procedures Procedure Date Refraction Comprehensive DEMETRIO Exam Refraction Intermediate Revisit Est. Patient Detailed Intermediate Revisit Refraction Est. Patient Detailed Refraction New Patient Comprehensive Advance Directives Directive Yes / No Effective Date File Name No Information Encounters Encounter Description Practice Location Reason(s) For Visit Diagnoses Date Provider Providers Copied on Encounter [facility] , [address], [place], [place], [id number], tel:[phone] [place] blurry vision (chief complaint) Type 1 diabetes mellitus on insulin therapyAllergic conjunctivitis, bilateralMyopia of both eyes 7 Xochitl Hernandez. [address] [facility], [address], [place], [id number] , [place]. tel:[phone] Referring Provider: David Saenz, [address] [facility] [address], [place], [address] . tel:[phone] [facility] [address], [id number], [place] tel:[phone] [place] blurry vision (chief complaint) Acute Atopic ConjunctivitisRegu lar Astigmatism 5 Xochitl Hernandez. [address] [facility], [address] [place] [address], [id number] , [place]. tel:[phone] Referring Provider: David Saenz, [address] [facility] [address] [place] [address], [address] . tel:[phone] Est. Patient Detailed [facility] [address], [id number], [place] tel:[phone] [place] Acute Atopic Conjunctivitis 4 Xochitl Hernandez. [address] [facility], [address], [id number] , [place]. tel:[phone] Referring Provider: David Saenz, [address] [facility] [address], [place], [address] . tel:[phone] [facility] [address], [id number], [place] tel:[phone] [place] ChalazionDiabetes Mellitus Type 2, UncomplicatedRegul ar AstigmatismAcute Atopic Conjunctivitis 4 Xochitl Hernandez. [address] [facility], [address], [place], [id number] , [place]. tel:[phone] Est. Patient Detailed [facility] [place], [address], [id number], tel:[phone] [place] Diabetes Mellitus Type 2, UncomplicatedRegul ar Astigmatism Apr-0 4 Xochitl Hernandez. [address] [facility], [address], [place], [place], [id number] , [place]. tel:[phone] [facility] , [address], [id number], tel:[phone] [place] Diabetes Mellitus Type 2, UncomplicatedRegul ar Astigmatism Oct-3 0-201 3 Xochitl Hernandez. [address] [facility], [address], [place], [place], [id number] , [place]. [phone] Family History Family Member Type Diagnosis Age At Onset Uncle Problem (finding) diabetes mellitus type 1 Payers Payer name Insurance type Covered democrat ID Authoriza tion(s) No Information Social History Type Description Quantity Date Captured Comments Alcohol Use Details No Caffeine Use Details No Tobacco Use Status No Information Smoking Status Never smoker Sex Male Chief Complaint And Reason For Visit From encounter dated '03/29/2016 15:30'. blurry vision (chief complaint). Description: The 10 Year 4 Months old male presents for evaluationof blurry vision OU. Pt states the blurryness is ocassionally and moderate. Pt denies any others symptoms. Last BLS 176 check on 03/29/2016 Reason For Referral Reason For Referral No Information History Of Present Illness Encounter Date Complaint History Of Prese nt Illness blurry vision The 10 Year 4 Mo nths old male presents for evaluation of blurry vision OU. Pt states the blurryness is ocassionally and moderate. Pt denies any others symptoms. Last BLS 176 check on 03/29/2016 blurry vision The 8 Year 3 Mo nths old male presents for evaluation of blurry vision in the right eye and left eye. It started about 2 month(s) ago. The onset was progressive. It affects distance vision. The symptom is infrequent. It occurs when at school seeing the board. The condition is mild. The condition is described as itchy. Functional Status Date Functional Assessmen t No Information Instructions Date Instruction Additional Infor deejay Type 1 diabetes andrea itus on insulin therapy - Increase physical activity. Related to Type 1 diabetes mellitus on insulin therapy Type 1 diabetes andrea itus on insulin therapy - Educational materials provided. Related to Type 1 diabetes mellitus on insulin therapy - Advised patient of condition. Reassured patient of current condition and treatment. Will continue to observe condition and or symptoms. Emphasized and explained compliance. Call if VA worsens. Patient instructed to call if condition gets worse. Advised systemic workup. Emphasized blood sugar control. New glasses Rx was given today. Related to Type 1 diabetes mellitus on insulin therapy - Return in 1 year w tiffani Leung MD for Complete Exam.. Related to Type 1 diabetes mellitus on insulin therapy - Recommended Patada y 1 gtt OU QD/PRN when itching (paper rx given) Control sugars F/U in 1 year for DEMETRIO Related to Acute Atopic Conjunctivitis - Return in 1 year w tiffani Leung MD for Complete Exam. Related to Acute Atopic Conjunctivitis Acute Atopic Conjunc tivitis OU--mild to moderateResolved conj/chalazion SHANON - D/C Erythromycin april Pt. adivsed to start Lotemax BID OU x 3 days. Then switch to Zaditor OTC 1 gtt OU BID/PRN when itching. Related to Acute Atopic Conjunctivitis - Return in 1 year w tiffani Leung MD for Complete Exam. 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 advised hot compresses.Start Erythromycin april BID OS X 2 weeks.Pt. given a sample of Bepreeve BID OU/ prn for itchingf/u 2 weeks if NI or prn increase pain and swelling Related to Acute Atopic Conjunctivitis - Return in 1 year w tiffani Leung MD for Complete Exam. Related to Acute Atopic Conjunctivitis Diabetes Mellitus Ty pe 2, Uncomplicated - No Diabetic RetinopathyRegular Astigmatism OU - Educational materials provided:Diabetic retinopathy and Diabetes- BSL control. Discussed diagnosis in detail with patient. Advised patient of condition. Will continue to observe condition and or symptoms.Control Sugars No Glasses Given at This time F/U 1 Year or PRN Related to Regular Astigmatism - Return in 1 year w tiffani Leung MD for Complete Exam. Related to Regular Astigmatism Diabetes Mellitus-No diabetic Retinopathy OU - Keep good control of Blood Sugar levels. Start Zaditor BID or PRN OU for itch. Report Dr. Austin Related to Diabetes Mellitus Type 2, Uncomplicated - Return in 1 year w tiffani Leung MD for Complete Exam. Related to Diabetes Mellitus Type 2, Uncomplicated Assessments Type Assessment Date assessment Type 1 diabetes mellitus on insu lucian therapy assessment Allergic conjunctivitisjefe al assessment Myopia of both eyes Patient Care Teams Name Effective Dates (start - stop) Status Members No Information
[2024-08-25 14:53] VITALS: BP 90/52; PULSE 96; O2SAT 98; BMI 17.8
--- NOTE | 2024-08-25 14:53 | A.OFFVIS_ITS ---
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 Accompanied by: Self / Same As Patient Allergies No Known Allergies Allergy (Verified 08/25/24 14:57) Medication List - Last Reconciled 08/25/24 by Alpa Hernandez MD acetone (urine) test (Ketone Urine Test strips) As directed to check ketones when blood sugars greater than 300 mg/dl blood sugar diagnostic (FreeStyle Lite Strips) As directed to check blood sugars 3 times a day blood-glucose meter (FreeStyle Lite Meter kit) As directed to check blood sugars 3 times a day blood-glucose sensor (FreeStyle Agustin 3 Plus Sensor device) As directed every 14 days insulin glargine (Basaglar KwikPen U-100 Insulin) 18 units (0.18 mL) subcut DAILY insulin lispro subcutaneously 3 times a day; up to 50 units per day lancets (FreeStyle Lancets) As directed to check blood sugars 3 times a day pen needle, diabetic (Comfort EZ Pen [place]) As directed to inject insulin 4 times a day, HPI Comments Details: 18-year-old male here today for fup of type 1 diabetes mellitus. Moved to [facility] early 2024 from [place]. Last debug technician visit was in [place] Mar 21 prior to that. History of diabetes Diagnosed at age 6 Prior therapy: He has been on insulin Omnipod pump in the past in 2014 when [place] used [place] However pump is not feasible for him as he goes to [place] for summer vacations for 2-3 months. Currently on On insulin basal bolus regimen with the MDI injections Current regimen: Lantus 14 HS Humalog BF 1:6, lunch and dinner 1 :8 Correction factor: 1:70 Corrects to 140 mg/dL requiring 10 to 15 units with meals CGM data downloaded from August 12 to 08/25/2024 Time CGM active 92% Average glucose 154 mg/dL G PA 7% Glucose variability 35.5% Within target range 65% High 26% Very high 5% Low 4% Very low 0% Interpretation: He is having fasting lows in the 60s, and then he would have afternoon hyperglycemia postprandially followed by a low later. However according to patient he confirms with a fingerstick and his blood sugars are mostly in the 80s not 60s with a recent sensor. He also did recently start walking, maybe that is why he is requiring less insulin. He is traveling 2 packs time for the next 3 months. He will be seeing his debug technician there. Has hypoglycemic awareness at 50s , feels hunger only when in 60s No serious hypoglycemic event a1c POC 06/18/24 7.9 % Saw CDE 07/02/2024, has follow up 11/18/2024 Denies any symptoms of hyperglycemia including polyphagia, polyuria, polydipsia. Complications Eye exam: Last eye exam was Mar 2023 , in [place], doesnt think they checked retina Neuropathy: no history , no paresthesias Kidney disease: no history of kidney disease Macrovascular complications: No history of macrovascular complications. Statin: None APRIL/ARB: None Exercise: He is walking now 30 minutes a day Diet control: Carb counts He has never had any hospitalizations for hyperglycemia/hypoglycemia. Social history Works online , mostly a desk job Physical exam General: sitting comfortably in no acute distress HEENT: normocephalic/atraumatic Neck: supple, symmetrical Cardiac: normal heart sounds Pulm: normal breath sounds B/L, no added breath sounds Abd: not distended, no tenderness Extremities: no edema, no signs of myxedema Neuro: AAO x3, Speech: normal, no facial droop, moving all 4 extremities Skin: no rash Foot exam: Intact sensation to monofilament, intact pulses, warm and well- perfused feet Laboratory Tests 06/18/24 06/18/24 14:57 15:38 Glucose (Clinic) 133 H Hgb A1c (Clinic) 7.9 H Laboratory Tests 08/25/24 08/25/24 10:18 14:59 Sodium 140 Potassium 4.3 Creatinine 0.86 Estimated GFR > 60 Glucose (Clinic) 187 H Random Glucose 145 H Calcium 9.1 Total Bilirubin 2.9 H Direct Bilirubin 0.4 AST 24 ALT 19 Alkaline Phosphatase 71 Total Protein 7.0 Albumin 4.6 Triglycerides 68 Cholesterol 144 LDL Cholesterol, Calc 91 HDL Cholesterol 40 L TSH 2.43 Labs seen on patient portal from [facility] 07/11/24 glucose 198 BUN 12 creatinine 0.9 egfr 125 na 138 k 4.6 cl 102 c02 19 ca 9.6 albumin 4.8 ast 17 alt 12 total cholesterol 171 tgl 58 hdl 44 LDL 116 tsh 3 PFS Medical History (Updated 08/25/24 @ 15:42 by Alpa Hernandez MD) Total bilirubin, elevated HLD (hyperlipidemia) Type 1 diabetes mellitus Family History Mother No problems noted. Father No problems noted. Social History Alcohol intake: never Patient Tobacco Use Status: Never used Tobacco Physical Exam Vital Signs: Last Vital Signs Pulse 96 08/25/24 14:53 BP 90/52 L 08/25/24 14:53 Pulse Ox 98 08/25/24 14:53 Oxygen Delivery Method Room Air 08/25/24 14:53 BMI result Body Mass Index 17.8 Office Procedures Glucose Monitoring Details Details: See HPI 23467 - Glucose monitoring, continuous-physician I&R Procedure code (CPT) selection complete Assessment & Plan Assessment & Plan (1) Type 1 diabetes mellitus: Code(s): E10.9 - Type 1 diabetes mellitus without complications Category: Medical Qualifiers: Diabetes mellitus complication detail: without coma Diabetes mellitus complication status: with hypoglycemia Qualified Code(s): E10.649 - Type 1 diabetes mellitus with hypoglycemia without coma Plan: 18-year-old male coming in today for follow up of type 1 diabetes mellitus. Diagnosed at age 6. He moved [place] the [place] earlier in 2024 from [place]. That is where he was getting his previous care. Currently on basal bolus regimen with the MDI. A1c most recently at 7.9% from 06/18/2024. This is above goal of less than 7%. Reviewed CGM data and he is having around 4% lows per the CGM but when he checks with a fingerstick, he says mostly his blood sugars and is in the 80s when the CGM sensor is reading 60s. This is somewhat reassuring. I told him if he continues to have industrial engineering low blood sugars he can reduce the Lantus to 12. For now he can continue on the 14. We will also go back on his previous sensitivity. He is traveling for the next 3 months, he will be seeing his debug technician in [place] while he is there. Hypoglycemia education done. He saw our educator, who went over different pumps, at this time patient is not interested in insulin pumps given that he travels to [facility] for long periods of time and finds it difficult to manage pump over there. Plan: -continue Lantus 14 units daily, and can further decreased to 12 units daily if continues to have low blood sugars in the morning -continue Humalog with current carb ratios, loosened correction factor to 1: 70 -podiatry referral in place, gave him the number to call, he is traveling for some time now, says this will be taken care of once he returns -ophthalmology referral in place, gave him the number to call, he is traveling [place] he might see hearing instrument specialist there. -hypoglycemia education done -follow up with certified diabetes educator -discussed importance of verifying blood sugars with fingerstick when blood sugars are very low or high -also provided education on hyperglycemia and risks of hyperglycemia. Provided travel letter for caring diabetes supplies. He is going to try to get Agustin 3+ supplies from his pharmacy before traveling. (2) HLD (hyperlipidemia): Code(s): E78.5 - Hyperlipidemia, unspecified Category: Medical Qualifiers: Hyperlipidemia type: mixed hyperlipidemia Qualified Code(s): E78.2 - Mixed hyperlipidemia Plan: LDL level elevated at 116 from June 2024. Goal LDL less than 70 mg/dL. LDL down to 91 from July 2024. With dietary changes. Given that he has had type 1 diabetes mellitus for over 20 years, could consider statin, however today I advised him again about lifestyle modification with cutting out red meat. He is doing a lot of improvements in his diet. Plan: -plan to repeat lipid panel sometime around fall/winter 2024 (3) Total bilirubin, elevated: Code(s): R17 - Unspecified jaundice Category: Medical Plan: He is total bilirubin is elevated to 2.9 from July 2024 previously was elevated to 2.4 earlier this year in 2024. I told him to speak to his PCP but he does not have a visit to later this year. He would benefit from an evaluation with gastroenterology regarding elevated bilirubin levels. His direct bilirubin is normal, indirect is elevated, suggesting possibly some kind of hemolytic process. He does not have any jaundiced appearance. He does complain of some nausea, no vomiting. At this time he is flying on Sunday, and I have told him to see a manager international while he is there in [place]. Would need an ultrasound of the liver. Once he returns we will see if I any can place a referral for him to be seen here. Plan I spent 30 minutes in reviewing the record, seeing the patient and documenting in the medical record. Orders: Orders 2 AMB Glucose Monitoring Today E10.649 - Type 1 diabetes mellitus with hypoglycemia without coma Medications: Changed 2 From insulin glargine (Basaglar KwikPen U-100 Insulin) 18 units (0.18 mL) subcut DAILY 15 mL 3RF E10.649 - Type 1 diabetes mellitus with hypoglycemia without coma To insulin glargine (Basaglar KwikPen U-100 Insulin) 14 units (0.14 mL) subcut DAILY 15 mL 3RF E10.649 - Type 1 diabetes mellitus with hypoglycemia without coma Patient Instructions: Continue 14 units of insulin lantus but if you continue to have low blood sugars in the morning reduce to 12 units daily Sensitivity back to 1:80 Please speak with a gastroententerologist regarding elevated bilirubin in [place] Coding Level of Care Code Est Pt Level 4 (53166) Diagnoses Type 1 diabetes mellitus with hypoglycemia and without coma E10.649 Diabetes mellitus complication detail: without coma Diabetes mellitus complication status: with hypoglycemia Mixed hyperlipidemia E78.2 Hyperlipidemia type: mixed hyperlipidemia Total bilirubin, elevated R17 CPT Codes Details - CPT: 74501 - Glucose monitoring, continuous-physician I&R ([id number]) Time Spent (min) 30
[2024-08-25 15:02] LABS: Glucose, Whole Blood 187 mg/dL (60-115)
--- OUTSIDE RECORDS SUMMARY | 2024-08-25 15:17 | XMS_ITS | Clinical Summary ---
Author Organization [address] Building Address [address] [place] [phone] Phone Care Team Providers Care Physicist Acoustics Name Role Phone Lexi Chiu MD Primary Care Provider [phone] Social History Tobacco Use Types Packs/Day Years [...] PM EDT Office Visit Internal Medicine - [address] [phone] Lexi Chiu MD [address] [place] [address] Health Maintenance Due Date Last Done Comments [...] patient's age to complete this topic Insurance [facility] [employer] PLAN MEDICAID - [place] Care Teams Physicist Acoustics Relationship Specialty Start Date End Date Lexi Chiu MD [address] [place] [phone] PCP - General Internal Medicine 05/05/24
== END 2024-08-25 15:35 | disposition home or self-care (01) ==
LOC: HO.ENCR 14:51
PROVIDERS: Visit Provider Student in an Organized Health Care Education/Training Program
DX: E10.649 Type 1 diabetes mellitus with hypoglycemia without coma (principal); E78.2 Mixed hyperlipidemia; R17 Unspecified jaundice
CPT/HCPCS: 95251; 99214